=== PATIENT | female | born 1965 | race Caucasian/White ===

== ENCOUNTER → 2016-12-20 | Outpatient (CLI) | payer OTHER ==
[~2016-12-20] MED LIST: ACET500T3 PO; ALBU1AER5 INH; AMIT25TA9 PO; AMIT50TA3 PO; AMOX500C PO; CETI-6 PO; CHOL5000 PO; CLON0.1T PO; GABA800T PO; LEVO125T4 PO; MELA1TAB18 PO; METF500T PO; OMEP40CA2 PO; PARO20TA2 PO; RANI150C PO; VITA500T4 PO; ZINC50TA PO
[2016-12-20 08:20] LABS: AUTOMATED NEUTROPHIL # 4.2 TH/MM3 (1.8-7.7); BASOPHIL % 0.4 % (0.0-2.0); EOSINOPHIL # 0.2 TH/MM3 (0-0.4); EOSINOPHIL % 3.6 % (0.0-4.0); HEMATOCRIT 37.9 % (35.0-46.0); HEMO FLAGS DIFF FINAL; LYMPH % 25.2 % (9.0-44.0); LYMPHOCYTE # 1.7 TH/MM3 (1.0-4.8); MEAN CELL VOLUME 85.8 FL (80.0-100.0); MEAN CORPUSCULAR HEMOGLOBIN 29.8 PG (27.0-34.0); MEAN CORPUSCULAR HGB CONC 34.7 % (32.0-36.0); MONO % 8.5 % (0.0-8.0); NEUT % 62.3 % (16.0-70.0); PLATELET COUNT 245 TH/MM3 (150-450); RED BLOOD COUNT 4.41 MIL/MM3 (4.00-5.30); RED CELL DISTRIBUTION WIDTH 12.8 % (11.6-17.2); WHITE BLOOD COUNT 6.7 TH/MM3 (4.0-11.0)
[2016-12-20 08:48] LABS: ANION GAP 6 MEQ/L (5-15); AST (GOT) 15 U/L (15-37); BICARBONATE 31.2 MEQ/L (21.0-32.0); BLOOD UREA NITROGEN 9 MG/DL (7-18); CHLORIDE 101 MEQ/L (98-107); GLOMERULAR FILTRATION RATE 65 ML/MIN (>89); GLUCOSE,FASTING 106 MG/DL (74-99); SODIUM (NA) 138 MEQ/L (136-145)
[2016-12-20 08:59] LABS: ALKALINE PHOSPHATASE 72 U/L (45-117); ALT (GPT) 22 U/L (10-53); HDL CHOLESTEROL 71.3 MG/DL (40.0-60.0); LDL CHOLESTEROL 136 MG/DL (0-99); TOTAL BILIRUBIN ADULT 0.4 MG/DL (0.2-1.0)
[2016-12-20 16:39] LABS: HEMOGLOBIN A1a 0.9 %; HEMOGLOBIN A1b 1.7 %; HEMOGLOBIN Ao 85.2 %; HEMOGLOBIN LA1C 1.9 %; HEMOGLOBIN P3 3.5 %
== END ==
LOC: CLAB 07:57
PROVIDERS: ATTEND Family Medicine
DX: E03.9 Hypothyroidism, unspecified (principal); E11.9 Type 2 diabetes mellitus without complications; I10 Essential (primary) hypertension; G89.29 Other chronic pain; G47.30 Sleep apnea, unspecified; E66.9 Obesity, unspecified
CPT/HCPCS: 36415; 80053; 80061; 83036; 84443; 85025

== ENCOUNTER → 2017-01-01 | Outpatient (CLI) | payer OTHER ==
[~2017-01-01] MED LIST changes: -AMOX500C PO
--- NOTE | 2017-01-01 13:30 | RADRPT ---
EXAM DATE/TIME: 01/01/2017 11:58 [facility] COMPARISON: No previous studies available for comparison. INDICATIONS : Dysphagia, foods sometimes feel like they are stuck in throat, awakes gasping, feeling like her throa t has closed up FLUORO TIME: 1.7 minutes IMAGE COUNT: 17 CONTRAST: 1. Liquid E-Z Paque Barium Sulfate (60% w/v, 41% w.w) E-Z HD Barium Sulfate (98% w.w) MEDICAL HISTORY : Hiatal hernia. SURGICAL HISTORY : None. ENCOUNTER: Initial ACUITY: 3 months PAIN SCORE: 0/10 LOCATION: Bilateral esophagus FINDINGS: Air-contrast views of the hypopharynx demonstrate a normal mucosal surface without filling defect. R apid sequence images of the hypopharynx and cervical esophagus during the passage of barium demonstra te a normal swallowing function. No evidence of aspiration. Multiphasic examination of the esophagu s demonstrates no esophageal fold thickening, ulceration, or filling defect. There is a small to mode rate size reducible hiatal hernia. There is a small amount of gastroesophageal reflux. CONCLUSION: 1. Small to moderate size reducible hiatal hernia. 2. Small amount of gastroesophageal reflux. Jack Tai MD on January 01, 2017 at 13:27 Board Certified Radiologist. This report was verified electronically.
== END ==
LOC: HRAD 11:03
PROVIDERS: ATTEND Family Medicine
DX: R13.10 Dysphagia, unspecified (principal)
CPT/HCPCS: 74230

== ENCOUNTER 2017-09-14 21:26 | Emergency (ER) | payer OTHER ==
[~2017-09-14] VITALS: Ht 167.6 cm; Wt 102.7 kg
[~2017-09-14 21:26] MED LIST changes: +ACET-822 PO; -ACET500T3 PO; -ALBU1AER5 INH; +ALBU6.7H INH; -AMIT25TA9 PO; -AMIT50TA3 PO; +DULO20 PO; -PARO20TA2 PO; +PARO30TA2 PO; -ZINC50TA PO
[2017-09-14 21:34] VITALS: BP 130/72; PULSE 88; RESP 18; TEMP 97.8; O2SAT 97
[2017-09-14] MEDS ORDERED: PROPARACAINE HCL 0.5% OPHT SOLN 15 ML BTL LEFT EYE ONE (23:15)
[2017-09-14] MEDS ORDERED: TRAM50TA PO (23:45)
[2017-09-14] MEDS ORDERED: traMADol HCL 50 MG TAB PO ONE (23:45)
[2017-09-14] MEDS ORDERED: ACYCLOVIR 800 MG TAB PO ONE (23:45)
[2017-09-14] MEDS ORDERED: ACYC-101 PO (23:46)
--- NOTE | 2017-09-14 23:54 | PD ---
HPI Chief Complaint: Skin Problem Time Seen by Provider: 23:09 Travel History International Travel<30 days: No Contact w/Intl Traveler<30days: No Traveled to known affect area: No History of Present Illness HPI The patient is a 52-year-old female that complains of shingles rash around her left mid trunk for about 2-3 days. She scratched the rash and then scratched her left eye and is worried that she may have some herpes zoster in her left eye. Her left eye does itch and burn slightly. She does not have any visual acuity problems. PFSH Past Medical History Asthma: Yes Autoimmune Disease: Yes (FIBROMYALGIA, GRAVES DISEASE) Heart Rhythm Problems: No Cardiac Catheterization: No Cardiovascular Problems: Yes (HTN) High Cholesterol: No Congestive Heart Failure: No Diabetes: Yes Diminished Hearing: No Deep Vein Thrombosis: Yes (right arm) Fibromyalgia: Yes GERD: Yes Hypertension: Yes Respiratory: Yes (ASTHMA) Migraines: Yes Thyroid Disease: Yes Tetanus Vaccination: < 5 Years Influenza Vaccination: No ?: Not : 0 Para: 0 Miscarriage: 0 : 0 Past Surgical History Appendectomy: Yes Coronary Artery Bypass Graft: No Hysterectomy: Yes Other Surgery: Yes (RADIOACTIVE IODINE FOR THYROID) Social History Alcohol Use: No Tobacco Use: No Substance Use: Yes (MARIJUNA) Allergies-Medications (Allergen,Severity, Reaction): Coded Allergies: Fish Containing Products (Unverified Allergy, Severe, Anaphylaxis, 09/14/17) aspirin (Unverified Allergy, Severe, Anaphylaxis, 09/14/17) diclofenac (Unverified Allergy, Severe, Swelling, 09/14/17) etodolac (Unverified Allergy, Severe, Swelling, 09/14/17) flurbiprofen (Unverified Allergy, Severe, Swelling, 09/14/17) ibuprofen (Unverified Allergy, Severe, Swelling, 09/14/17) indomethacin (Unverified Allergy, Severe, Swelling, 09/14/17) ketoprofen (Unverified Allergy, Severe, Swelling, 09/14/17) ketorolac (Unverified Allergy, Severe, Swelling, 09/14/17) naproxen (Unverified Allergy, Severe, Swelling, 09/14/17) oxaprozin (Unverified Allergy, Severe, Swelling, 09/14/17) raspberry (Unverified Allergy, Severe, Anaphylaxis, 09/14/17) shellfish derived (Verified Allergy, Severe, Anaphylaxis, 09/14/17) Sulfa (Sulfonamide Antibiotics) (Unverified Adverse Reaction, Intermediate , Nausea/Vomiting, 09/14/17) Uncoded Allergies: SEAFOOD (Allergy, Severe, Anaphylaxis, 09/14/17) Reported Meds & Prescriptions Reported Meds & Active Scripts Active Zovirax (Acyclovir) 800 Mg Tab 800 Mg PO 5 TIMES A DAY 7 Days Tramadol (Tramadol HCl) 50 Mg Tab 50 Mg PO Q4H PRN Proventil Hfa 6.7 GM Inh (Albuterol Sulfate) 90 Mcg/Act Aer 2 Puff INH Q6H PRN Omeprazole 40 Mg Cap 40 Mg PO DAILY Levothyroxine (Levothyroxine Sodium) 125 Mcg Tab 125 Mcg PO DAILY Ranitidine (Ranitidine HCl) 150 Mg Cap 150 Mg PO BID Metformin (Metformin HCl) 500 Mg Tab 500 Mg PO DAILY With a meal Gabapentin 800 Mg Tab 800 Mg PO QID Reported Cymbalta DR (Duloxetine HCl) 20 Mg Capdr 40 Mg PO DAILY Tylenol Extra Strength (Acetaminophen) 500 Mg Tablet 2 Tab PO DIRECTED Paroxetine (Paroxetine HCl) 30 Mg Tab 30 Mg PO DAILY Eq Allergy Relief (Cetirizine HCl) 10 Mg Tab 10 Mg PO DAILY Vitamin B-12 (Cyanocobalamin) 500 Mcg Tab 500 Mcg PO DAILY Melatonin 10 Mg Tab 10 Mg PO HS PRN Vitamin D3 (Cholecalciferol) 5,000 Unit Cap 5,000 Units PO DAILY Clonidine (Clonidine HCl) 0.1 Mg Tab 0.1 Mg PO HS Review of Systems Except as stated in HPI: all other systems reviewed are Neg Physical Exam Narrative GENERAL: The patient is alert, oriented 3 in moderate apparent distress with her herpes zoster rash. Her blood pressure is 130/70. The rest of the vital signs are normal. SKIN: Focused skin assessment warm/dry. There is a classic herpes rash below the left breast and around the trunk. This rash does not cross midline. HEAD: Atraumatic. Normocephalic. EYES: Pupils equal and round. No scleral icterus. No injection or drainage. The visual acuity is 20/40 left eye and 20/15 right eye area. The for seen staining revealed no corneal uptake. The temporal portion of the left lower eyelid shows some slight erythema but no vesicles. This is where she feels the itching and burning. No discharge is present. ENT: No nasal bleeding or discharge. Mucous membranes pink and moist. NECK: Trachea midline. No JVD. CARDIOVASCULAR: Regular rate and rhythm. No murmur appreciated. RESPIRATORY: No accessory muscle use. Clear to auscultation. Breath sounds equal bilaterally. GASTROINTESTINAL: Abdomen soft, non-tender, nondistended. Hepatic and splenic margins not palpable. MUSCULOSKELETAL: No obvious deformities. No clubbing. No cyanosis. No edema. NEUROLOGICAL: Awake and alert. No obvious cranial nerve deficits. Motor grossly within normal limits. Normal speech. PSYCHIATRIC: Appropriate mood and affect; insight and judgment normal. Data Data Last Documented VS Vital Signs Date Time Temp Pulse Resp B/P (MAP) Pulse Ox O2 Delivery O2 Flow Rate FiO2 09/14/17 23:01 20 09/14/17 21:34 97.8 88 130/72 (91) 97 Orders Orders Proparacaine 0.5% Opth Soln (Alcaine 0.5 (09/14/17 23:15) Acyclovir (Zovirax) (09/14/17 23:45) Tramadol (Ultram) (09/14/17 23:45) MDM Medical Decision Making Medical Screen Exam Complete: Yes Emergency Medical Condition: Yes Medical Record Reviewed: Yes Differential Diagnosis Herpes zoster, seborrheic dermatitis, herpes zoster with eye involvement Narrative Course The patient has herpes zoster on the skin. At this time I see no corneal involvement with herpes. Forcing staining was normal. I do not see any vesicles on the left eyelid. Nevertheless, the patient will need to follow-up with an ndt inspector as soon as possible. She is given Zovirax and tramadol for the herpes zoster on the skin. Additional Instructions: Keep her fingers out of your eye, I know you already know that. Sunday he should follow-up with an ndt inspector to make sure you did not get eye involvement with herpes. The Zovirax is 5 tablets daily for 7 days. Do not drink alcohol or drive on the tramadol. If worse, you are welcome to return to the emergency department. Med/Other Pt SpecificInfo: Prescription(s) given Scripts Acyclovir (Zovirax) 800 Mg Tab 800 MG PO 5 TIMES A DAY for Mgmt Viral Infection for 7 Days, TAB 0 Refills Prov: Amado Leo MD 09/14/17 Tramadol (Tramadol) 50 Mg Tab 50 MG PO Q4H Y for PAIN, #30 TAB 0 Refills Prov: Amado Leo MD 09/14/17 Disposition: 01 DISCHARGE HOME Condition: Stable Amado Leo MD Sep 14, 2017 23:54
[2017-09-15 00:06] VITALS: BP 133/90
== END 2017-09-15 00:10 | disposition home or self-care (01) ==
LOC: PHED 21:26
DX: B02.9 Zoster without complications (principal); M79.7 Fibromyalgia; E05.00 Thyrotoxicosis with diffuse goiter without thyrotoxic crisis or storm; I10 Essential (primary) hypertension; E11.9 Type 2 diabetes mellitus without complications; J45.909 Unspecified asthma, uncomplicated; Z86.718 Personal history of other venous thrombosis and embolism; K21.9 Gastro-esophageal reflux disease without esophagitis; Z79.899 Other long term (current) drug therapy
CPT/HCPCS: 99284

== ENCOUNTER 2017-10-15 17:46 | Emergency (ER) | payer OTHER ==
[~2017-10-15] VITALS: Ht 165.1 cm; Wt 98.0 kg
[~2017-10-15 17:46] MED LIST changes: +ACYC-101 PO; +TRAM50TA PO
[2017-10-15 17:56] VITALS: BP 164/90; PULSE 98; RESP 16; TEMP 98.7; O2SAT 97
[2017-10-15] MEDS ORDERED: PRED20 PO (20:34)
[2017-10-15] MEDS ORDERED: AZIT250T3 PO (20:34)
[2017-10-15] MEDS ORDERED: ALBUAER3 INH (20:34)
--- NOTE | 2017-10-15 20:34 | PD ---
HPI Chief Complaint: Cold / Flu Symptoms Time Seen by Provider: 19:44 Travel History International Travel<30 days: No Contact w/Intl Traveler<30days: No Traveled to known affect area: No History of Present Illness HPI This is a 52-year-old female here with productive cough and wheezing 4 days. She reports the symptoms originally started out as a flulike illness with fever , body aches, nasal congestion and sore throat. The symptoms resolved and she developed this deep productive cough. History of asthma. Severity is moderate. No aggravating or relieving factors. PFSH Past Medical History Asthma: Yes Autoimmune Disease: Yes (FIBROMYALGIA, GRAVES DISEASE) Heart Rhythm Problems: No Cardiac Catheterization: No Cardiovascular Problems: Yes (HTN) High Cholesterol: No Congestive Heart Failure: No Diabetes: Yes Patient Takes Glucophage: No Diminished Hearing: No Deep Vein Thrombosis: Yes (right arm) Fibromyalgia: Yes GERD: Yes Heparin Induced Thrombocytopen: No Hypertension: Yes Respiratory: Yes (ASTHMA) Migraines: Yes Thyroid Disease: Yes Tetanus Vaccination: < 5 Years Influenza Vaccination: No ?: Not : 0 Para: 0 Miscarriage: 0 : 0 Past Surgical History Appendectomy: Yes Coronary Artery Bypass Graft: No Hysterectomy: Yes Other Surgery: Yes (RADIOACTIVE IODINE FOR THYROID) Family History Family Myocardial Infarction: Yes Social History Alcohol Use: No Tobacco Use: No Substance Use: No Allergies-Medications (Allergen,Severity, Reaction): Coded Allergies: Fish Containing Products (Unverified Allergy, Severe, Anaphylaxis, 10/15/17) aspirin (Unverified Allergy, Severe, Anaphylaxis, 10/15/17) diclofenac (Unverified Allergy, Severe, Swelling, 10/15/17) etodolac (Unverified Allergy, Severe, Swelling, 10/15/17) flurbiprofen (Unverified Allergy, Severe, Swelling, 10/15/17) ibuprofen (Unverified Allergy, Severe, Swelling, 10/15/17) indomethacin (Unverified Allergy, Severe, Swelling, 10/15/17) ketoprofen (Unverified Allergy, Severe, Swelling, 10/15/17) ketorolac (Unverified Allergy, Severe, Swelling, 10/15/17) naproxen (Unverified Allergy, Severe, Swelling, 10/15/17) oxaprozin (Unverified Allergy, Severe, Swelling, 10/15/17) raspberry (Unverified Allergy, Severe, Anaphylaxis, 10/15/17) shellfish derived (Verified Allergy, Severe, Anaphylaxis, 10/15/17) Sulfa (Sulfonamide Antibiotics) (Unverified Adverse Reaction, Intermediate , Nausea/Vomiting, 10/15/17) Uncoded Allergies: SEAFOOD (Allergy, Severe, Anaphylaxis, 09/14/17) Reported Meds & Prescriptions Reported Meds & Active Scripts Active Tramadol (Tramadol HCl) 50 Mg Tab 50 Mg PO Q4H PRN Proventil Hfa 6.7 GM Inh (Albuterol Sulfate) 90 Mcg/Act Aer 2 Puff INH Q6H PRN Omeprazole 40 Mg Cap 40 Mg PO DAILY Levothyroxine (Levothyroxine Sodium) 125 Mcg Tab 125 Mcg PO DAILY Ranitidine (Ranitidine HCl) 150 Mg Cap 150 Mg PO BID Metformin (Metformin HCl) 500 Mg Tab 500 Mg PO DAILY With a meal Gabapentin 800 Mg Tab 800 Mg PO QID Reported Cymbalta DR (Duloxetine HCl) 20 Mg Capdr 40 Mg PO DAILY Paroxetine (Paroxetine HCl) 30 Mg Tab 30 Mg PO DAILY Eq Allergy Relief (Cetirizine HCl) 10 Mg Tab 10 Mg PO DAILY Vitamin B-12 (Cyanocobalamin) 500 Mcg Tab 500 Mcg PO DAILY Vitamin D3 (Cholecalciferol) 5,000 Unit Cap 5,000 Units PO DAILY Clonidine (Clonidine HCl) 0.1 Mg Tab 0.1 Mg PO HS Review of Systems Except as stated in HPI: all other systems reviewed are Neg General / Constitutional: Positive: Fever Eyes: No: Visual changes HENT: No: Headaches Cardiovascular: No: Chest Pain or Discomfort Gastrointestinal: No: Abdominal Pain Genitourinary: No: Dysuria Musculoskeletal: No: Pain Skin: No Rash Physical Exam Narrative GENERAL: Alert and well-appearing 52-year-old female. SKIN: Warm and dry. No rash HEAD: Normocephalic. EYES: No injection or drainage. Ear/nose/throat: No TM erythema. Clear nasal discharge. Mild pharyngeal erythema without tonsillar hypertrophy or exudate. NECK: Supple. No meningismus CARDIOVASCULAR: Regular rate and rhythm RESPIRATORY: Breath sounds equal bilaterally. No accessory muscle use. Rhonchorous cough with mild expiratory wheeze GASTROINTESTINAL: Abdomen soft, non-tender, nondistended. MUSCULOSKELETAL: No cyanosis, or edema. BACK: No CVA tenderness. Data Data Last Documented VS Vital Signs Date Time Temp Pulse Resp B/P (MAP) Pulse Ox O2 Delivery O2 Flow Rate FiO2 10/15/17 17:56 98.7 98 16 164/90 (114) 97 MDM Medical Decision Making Medical Screen Exam Complete: Yes Emergency Medical Condition: Yes Differential Diagnosis Bronchitis, pneumonia, influenza Narrative Course This is a 52-year-old female here with a rhonchorous productive cough. She is nontoxic appearing. She'll be for bronchitis. Diagnosis Primary Impression: Bronchitis Referrals: Primary Care Physician Additional Instructions: Medication as directed. stay well hydrated. follow up with your doctor. Scripts Albuterol 8.5 GM Inh (Proair Hfa 8.5 GM Inh) 90 Mcg/Act Aer 2 PUFF INH Q4-6H Y for SHORTNESS OF BREATH, #1 INHALER 0 Refills 108 mcg/actuation Prov: Viviane Velásquez 10/15/17 Prednisone (Prednisone) 20 Mg Tab 40 MG PO DAILY, #10 TAB 0 Refills Take 40 mg (2 tablets) daily for 5 days Prov: Viviane Velásquez 10/15/17 Azithromycin (Azithromycin) 250 Mg Tab 250 MG PO DIRECTED for Infection, #6 TAB 0 Refills Take 2 tabs (500 mg) on day 1 then 1 tab daily x 4 days. Prov: Viviane Velásquez 10/15/17 Disposition: 01 DISCHARGE HOME Condition: Stable Viviane Velásquez Oct 15, 2017 20:34
== END 2017-10-15 20:44 | disposition home or self-care (01) ==
LOC: PHED 17:46 → PHEFT 20:44
DX: J40 Bronchitis, not specified as acute or chronic (principal); E11.9 Type 2 diabetes mellitus without complications; I10 Essential (primary) hypertension; M79.7 Fibromyalgia; E05.00 Thyrotoxicosis with diffuse goiter without thyrotoxic crisis or storm; K21.9 Gastro-esophageal reflux disease without esophagitis; Z86.718 Personal history of other venous thrombosis and embolism; Z79.84 Long term (current) use of oral hypoglycemic drugs
CPT/HCPCS: 99283

== ENCOUNTER 2018-01-05 09:31 | Emergency (ER) | payer OTHER ==
[~2018-01-05] VITALS: Ht 167.6 cm; Wt 95.0 kg
[~2018-01-05 09:31] MED LIST changes: -ACET-822 PO; -ACYC-101 PO; +ALBUAER3 INH; +AZIT250T3 PO; -MELA1TAB18 PO; +PRED20 PO
[2018-01-05 09:33] VITALS: BP 149/81; PULSE 91; RESP 16; TEMP 98; O2SAT 95
--- NOTE | 2018-01-05 09:55 | PD ---
HPI Chief Complaint: Cold / Flu Symptoms Time Seen by Provider: 09:38 Travel History International Travel<30 days: No Contact w/Intl Traveler<30days: No Traveled to known affect area: No History of Present Illness HPI 52-year-old female presents to the emergency department for evaluation of productive cough, chest pain, shortness of breath, wheezing that started on Sunday. She reports fevers up to 102 since . Patient reports history of type 2 diabetes, hypertension, DVT, asthma. She states she has been using her albuterol inhaler home without improvement. Patient also reports left- sided chest pain, worse with coughing since Sunday as well. Patient states that she feels like she has specks of blood in her sputum. She reports history of DVT in the arm after hysterectomy in 2009. No other history of blood clots. No recent surgery or travel. No leg edema. Patient states that normally if she gets sick, she has congestion, but this feels different. No headache. No abdominal pain. She reports nausea and decreased appetite. No vomiting. No exacerbating or alleviating factors. Moderate severity. PFSH Past Medical History Hx Anticoagulant Therapy: No Asthma: Yes Autoimmune Disease: Yes (FIBROMYALGIA, GRAVES DISEASE) Heart Rhythm Problems: No Cardiac Catheterization: No Cardiovascular Problems: Yes (HTN) High Cholesterol: No Congestive Heart Failure: No Diabetes: Yes (TYPE 2) Diminished Hearing: No Deep Vein Thrombosis: Yes (right arm) Fibromyalgia: Yes GERD: Yes Heparin Induced Thrombocytopen: No Hypertension: Yes Respiratory: Yes (ASTHMA) Migraines: Yes Thyroid Disease: Yes ?: Not : 0 Para: 0 Miscarriage: 0 : 0 Past Surgical History Appendectomy: Yes Coronary Artery Bypass Graft: No Hysterectomy: Yes Other Surgery: Yes (RADIOACTIVE IODINE FOR THYROID) Social History Alcohol Use: No Tobacco Use: No Substance Use: No Allergies-Medications (Allergen,Severity, Reaction): Coded Allergies: Fish Containing Products (Unverified Allergy, Severe, Anaphylaxis, 01/05/18 ) aspirin (Unverified Allergy, Severe, Anaphylaxis, 01/05/18) diclofenac (Unverified Allergy, Severe, Swelling, 01/05/18) etodolac (Unverified Allergy, Severe, Swelling, 01/05/18) flurbiprofen (Unverified Allergy, Severe, Swelling, 01/05/18) ibuprofen (Unverified Allergy, Severe, Swelling, 01/05/18) indomethacin (Unverified Allergy, Severe, Swelling, 01/05/18) ketoprofen (Unverified Allergy, Severe, Swelling, 01/05/18) ketorolac (Unverified Allergy, Severe, Swelling, 01/05/18) naproxen (Unverified Allergy, Severe, Swelling, 01/05/18) oxaprozin (Unverified Allergy, Severe, Swelling, 01/05/18) raspberry (Unverified Allergy, Severe, Anaphylaxis, 01/05/18) shellfish derived (Verified Allergy, Severe, Anaphylaxis, 01/05/18) Sulfa (Sulfonamide Antibiotics) (Unverified Adverse Reaction, Intermediate , Nausea/Vomiting, 01/05/18) Uncoded Allergies: SEAFOOD (Allergy, Severe, Anaphylaxis, 09/14/17) Reported Meds & Prescriptions Reported Meds & Active Scripts Active Proair Hfa 8.5 GM Inh (Albuterol Sulfate) 90 Mcg/Act Aer 2 Puff INH Q4-6H PRN 108 mcg/actuation Tramadol (Tramadol HCl) 50 Mg Tab 50 Mg PO Q4H PRN Proventil Hfa 6.7 GM Inh (Albuterol Sulfate) 90 Mcg/Act Aer 2 Puff INH Q6H PRN Omeprazole 40 Mg Cap 40 Mg PO DAILY Levothyroxine (Levothyroxine Sodium) 125 Mcg Tab 125 Mcg PO DAILY Ranitidine (Ranitidine HCl) 150 Mg Cap 150 Mg PO BID Metformin (Metformin HCl) 500 Mg Tab 500 Mg PO DAILY With a meal Gabapentin 800 Mg Tab 800 Mg PO QID Reported Kin DR (Duloxetine HCl) 20 Mg Capdr 40 Mg PO DAILY Paroxetine (Paroxetine HCl) 30 Mg Tab 30 Mg PO DAILY Eq Allergy Relief (Cetirizine HCl) 10 Mg Tab 10 Mg PO DAILY Vitamin B-12 (Cyanocobalamin) 500 Mcg Tab 500 Mcg PO DAILY Vitamin D3 (Cholecalciferol) 5,000 Unit Cap 5,000 Units PO DAILY Clonidine (Clonidine HCl) 0.1 Mg Tab 0.1 Mg PO HS Review of Systems Except as stated in HPI: all other systems reviewed are Neg Physical Exam Narrative GENERAL: Well-nourished, well-developed female patient, afebrile. SKIN: Focused skin assessment warm/dry. HEAD: Normocephalic. Atraumatic ENT: Mucosa pink and moist. No erythema or exudates. No uvular edema. No uvular , palatal, or tonsillar deviation. Airway patent. Nasal turbinates appear normal without nasal blood, purulent drainage or septal hematoma. Bilateral tympanic membranes clear without erythema or perforation. EYES: No scleral icterus. No injection or drainage. NECK: Supple, trachea midline. No JVD or lymphadenopathy. CARDIOVASCULAR: Regular rate and rhythm without murmurs, gallops, or rubs. Bilateral radial and pedal pulses are 2+. RESPIRATORY: Breath sounds equal bilaterally. No accessory muscle use. Lung sounds were initially clear, but diminished. However, after patiently down, expiratory wheezes are noted throughout. GASTROINTESTINAL: Abdomen soft, non-tender, nondistended. MUSCULOSKELETAL: No cyanosis, or edema. Left-sided chest pain is reproducible with palpation. BACK: Nontender without obvious deformity. No CVA tenderness. Data Data Last Documented VS Vital Signs Date Time Temp Pulse Resp B/P (MAP) Pulse Ox O2 Delivery O2 Flow Rate FiO2 01/05/18 10:10 16 95 Room Air 01/05/18 09:55 91 01/05/18 09:33 98.0 149/81 (103) Orders Orders Complete Blood Count With Diff (01/05/18 09:48) Basic Metabolic Panel (Bmp) (01/05/18 09:48) D-Dimer (01/05/18 09:48) Act Partial Throm Time (Ptt) (01/05/18 09:48) Prothrombin Time / Inr (Pt) (01/05/18:48) Magnesium (Mg) (01/05/18 09:48) Ckmb (Isoenzyme) Profile (01/05/18 09:48) Troponin I (01/05/18 09:48) Iv Access Insert/Monitor (01/05/18:48) Electrocardiogram (01/05/18:48) Ecg Monitoring (01/05/18:48) Oximetry (01/05/18 09:48) Oxygen Administration (01/05/18 09:48) Chest, Single Ap (01/05/18 09:48) Sodium Chloride 0.9% Flush (Ns Flush) (01/05/18 10:00) Methylprednisolone So Succ Inj (Solumedr (01/05/18 10:00) Albuterol-Ipratropium Neb (Duoneb Neb) (01/05/18 10:00) Ceftriaxone Inj (Rocephin Inj) (01/05/18 11:15) Labs Laboratory Tests Test 01/05/18 10:10 White Blood Count 7.6 TH/MM3 Red Blood Count 4.51 MIL/MM3 Hemoglobin 13.3 GM/DL Hematocrit 37.7 % Mean Corpuscular Volume 83.7 FL Mean Corpuscular Hemoglobin 29.5 PG Mean Corpuscular Hemoglobin Concent 35.2 % Red Cell Distribution Width 12.7 % Platelet Count 275 TH/MM3 Mean Platelet Volume 8.5 FL Neutrophils (%) (Auto) 85.4 % Lymphocytes (%) (Auto) 9.1 % Monocytes (%) (Auto) 4.7 % Eosinophils (%) (Auto) 0.3 % Basophils (%) (Auto) 0.5 % Neutrophils # (Auto) 6.5 TH/MM3 Lymphocytes # (Auto) 0.7 TH/MM3 Monocytes # (Auto) 0.4 TH/MM3 Eosinophils # (Auto) 0.0 TH/MM3 Basophils # (Auto) 0.0 TH/MM3 CBC Comment DIFF FINAL Differential Comment Prothrombin Time 10.1 SEC Prothromb Time International Ratio 1.0 RATIO Activated Partial Thromboplast Time 26.5 SEC D-Dimer Quantitative (PE/DVT) 0.41 MG/L FEU Blood Urea Nitrogen 8 MG/DL Creatinine 0.82 MG/DL Random Glucose 175 MG/DL Calcium Level 9.6 MG/DL Magnesium Level 2.3 MG/DL Sodium Level 136 MEQ/L Potassium Level 3.7 MEQ/L Chloride Level 99 MEQ/L Carbon Dioxide Level 30.7 MEQ/L Anion Gap 6 MEQ/L Estimat Glomerular Filtration Rate 73 ML/MIN Total Creatine Kinase 75 U/L Troponin I LESS THAN 0.02 NG/ML MDM Medical Decision Making Medical Screen Exam Complete: Yes Emergency Medical Condition: Yes Medical Record Reviewed: Yes Interpretation(s) Last Impressions Chest X-Ray 01/05/18 0948 Signed Impressions: Service Date/Time: Friday, January 05, 2018 09:50 - CONCLUSION: Fine reticular nodular infiltrates are noted bilaterally. Tani Ferreira MD Differential Diagnosis Bronchitis versus pneumonia versus asthma exacerbation versus ACS versus PE Narrative Course 52-year-old female presents to the emergency department for evaluation of productive cough, wheezing, shortness of breath and left-sided chest pain worse with coughing since Sunday. EKG, CBC, BMP, magnesium, CK, troponin, PTT, PT/ INR, d-dimer ordered and pending. Patient is given DuoNeb 3 and Solu-Medrol and 25 mg IV. Chest x-ray is ordered and pending. EKG shows sinus rhythm, heart rate 74, no acute ST changes. CBC shows normal WBC of 7.6, no acute abnormality. BMP shows hyperglycemia 175, no acute abnormal. Ck is 75. Troponin is less than 0.02. Magnesium is 2.3. Coags are unremarkable. D-dimer is 0.41. Chest x-ray shows fine reticular nodular infiltrates noted bilaterally. Patient is given Rocephin 1 g IV in the emergency department. She will be discharged prescription for azithromycin for pneumonia. She will also be given a refill of her albuterol inhaler as well as prednisone. She is to follow-up with her primary care physician or return here for any acute worsening of symptoms. The patient was discharged in stable condition with instructions, including return instructions and follow up instructions. Diagnosis Primary Impression: Pneumonia Qualified Codes: J18.9 - Pneumonia, unspecified organism Referrals: Primary Care Physician call for appointment Patient Instructions: Community Acquired Pneumonia (ED), General Instructions Departure Forms: Tests/Procedures, Work Release Enter return to work date: January 08, 2018 Additional Instructions: Take antibiotic as directed until gone. Start this today. Take prednisone as directed. Start this tomorrow. Use albuterol inhaler as directed as needed for shortness of breath/wheezing. Follow-up with your primary care physician early next week. Return to the emergency department for any acute worsening of symptoms Med/Other Pt SpecificInfo: Prescription(s) given Scripts Albuterol 18 GM Inh (Ventolin Hfa 18 GM Inh) 90 Mcg/Act Aer 1 PUFF INH Q4H Y for SHORTNESS OF BREATH, #1 INHALER 0 Refills Prov: Patti Blake 01/05/18 Azithromycin (Azithromycin) 250 Mg Tab 250 MG PO DIRECTED for Infection, #6 TAB 0 Refills Take 2 tabs (500 mg) on day 1 then 1 tab daily x 4 days. Prov: Patti Blake 01/05/18 Prednisone (Prednisone) 20 Mg Tab 40 MG PO DAILY, #10 TAB 0 Refills Take 40 mg (2 tablets) daily for 5 days Prov: Patti Blake 01/05/18 Disposition: 01 DISCHARGE HOME Condition: Stable Patti Blake Jan 05, 2018 09:55
[2018-01-05] MEDS ORDERED: methylPREDNISolone SOD SUCC 125 MG/2 ML VIAL IV PUSH ONE (10:00)
[2018-01-05] MEDS ORDERED: SODIUM CHLORIDE 0.9% FLUSH 10 ML FLUSH IVF PRN (10:00)
[2018-01-05] MEDS: RESP: ALBUTEROL 2.5 MG/IPRATROPIUM 0.5 MG NEB (SCH) INH (10:03)
[2018-01-05 10:10] VITALS: RESP 16; O2SAT 95
[2018-01-05 10:33] LABS: AUTOMATED NEUTROPHIL # 6.5 TH/MM3 (1.8-7.7); BASOPHIL % 0.5 % (0.0-2.0); EOSINOPHIL % 0.3 % (0.0-4.0); HEMATOCRIT 37.7 % (35.0-46.0); HEMOGLOBIN 13.3 GM/DL (11.6-15.3); LYMPH % 9.1 % (9.0-44.0); LYMPHOCYTE # 0.7 TH/MM3 (1.0-4.8); MEAN CELL VOLUME 83.7 FL (80.0-100.0); MEAN CORPUSCULAR HEMOGLOBIN 29.5 PG (27.0-34.0); MEAN CORPUSCULAR HGB CONC 35.2 % (32.0-36.0); MEAN PLATELET VOLUME 8.5 FL (7.0-11.0); MONO % 4.7 % (0.0-8.0); MONOCYTE # 0.4 TH/MM3 (0-0.9); NEUT % 85.4 % (16.0-70.0); PLATELET COUNT 275 TH/MM3 (150-450); RED BLOOD COUNT 4.51 MIL/MM3 (4.00-5.30); RED CELL DISTRIBUTION WIDTH 12.7 % (11.6-17.2); WHITE BLOOD COUNT 7.6 TH/MM3 (4.0-11.0)
[2018-01-05 10:41] LABS: CHLORIDE 99 MEQ/L (98-107); SODIUM (NA) 136 MEQ/L (136-145)
[2018-01-05 10:44] LABS: CALCIUM 9.6 MG/DL (8.5-10.1)
--- NOTE | 2018-01-05 10:44 | RADRPT ---
EXAM DATE/TIME: 01/05/2018 09:50 [facility] COMPARISON: No previous studies available for comparison. INDICATIONS : Cough. Short of breath for 5 days. MEDICAL HISTORY : Hiatal hernia. SURGICAL HISTORY : None. ENCOUNTER: Initial ACUITY: 4 - 6 days PAIN SCORE: 6/10 LOCATION: Bilateral chest FINDINGS: There is mild cardiomegaly. Mild diffuse reticular-nodular infiltrate suspected bilaterally greatest in the lung bases. There are no effusions. Osseous structures are intact. CONCLUSION: Fine reticular nodular infiltrates are noted bilaterally. Tani Ferreira MD on January 05, 2018 at 10:41 Board Certified Radiologist. This report was verified electronically.
[2018-01-05 10:45] LABS: BICARBONATE 30.7 MEQ/L (21.0-32.0); BLOOD UREA NITROGEN 8 MG/DL (7-18); GLUCOSE,RANDOM 175 MG/DL (74-106); MAGNESIUM 2.3 MG/DL (1.5-2.5)
[2018-01-05 10:47] LABS: PROTHROMBIN TIME - PATIENT 10.1 SEC (9.8-11.6)
[2018-01-05 10:48] LABS: CREATININE 0.82 MG/DL (0.50-1.00); GLOMERULAR FILTRATION RATE 73 ML/MIN (>89)
[2018-01-05 10:51] LABS: D-DIMER 0.41 MG/L FEU (0.00-0.50)
[2018-01-05 10:53] LABS: TROPONIN I LESS THAN 0.02 NG/ML (0.02-0.05)
[2018-01-05] MEDS ORDERED: AZIT250T3 PO (11:14)
[2018-01-05] MEDS ORDERED: VENTAER INH (11:14)
[2018-01-05] MEDS ORDERED: PRED20 PO (11:14)
[2018-01-05] MEDS ORDERED: cefTRIAXone INJ 1,000 MG in SODIUM CHLORIDE 0.9% INJ 100 ML IV ONE (11:15)
[2018-01-05 12:35] VITALS: BP 143/80
--- NOTE | 2018-01-05 14:17 | EKG ---
Date Performed: 01/05/2018 Time Performed: 09:57:17 PTAGE: 52 years EKG: Sinus rhythm NORMAL ECG PREVIOUS TRACING : 08/20/2014 19.20 Since the previous tracing, no significant change noted DOCTOR: Anthony Ramos Interpretating Date/Time 01/05/2018 14:16:42
== END 2018-01-05 12:38 | disposition home or self-care (01) ==
LOC: PHED 09:31
DX: J18.9 Pneumonia, unspecified organism (principal); E11.9 Type 2 diabetes mellitus without complications; I10 Essential (primary) hypertension; J45.909 Unspecified asthma, uncomplicated; M79.7 Fibromyalgia; E05.00 Thyrotoxicosis with diffuse goiter without thyrotoxic crisis or storm; K21.9 Gastro-esophageal reflux disease without esophagitis; E07.9 Disorder of thyroid, unspecified; Z86.718 Personal history of other venous thrombosis and embolism
CPT/HCPCS: 71045; 80048; 82550; 83735; 84484; 85025; 85379; 85610; 85730; 93005; 94640; 94664; 96365; 96376; 99285; J0696; J2930

== ENCOUNTER 2018-02-01 09:38 | Emergency (ER) | payer OTHER ==
[~2018-02-01] VITALS: Ht 167.6 cm; Wt 96.0 kg
[~2018-02-01 09:38] MED LIST changes: +VENTAER INH
[2018-02-01 09:40] VITALS: BP 155/70; PULSE 97; RESP 18; TEMP 98.3; O2SAT 100
[2018-02-01] MEDS ORDERED: AMOX500C PO (09:51)
[2018-02-01] MEDS ORDERED: CLINDAMYCIN PHOS 600 MG/4 ML VIAL IM ONE (10:00)
[2018-02-01] MEDS ORDERED: CLIN300C5 PO (10:03)
[2018-02-01] MEDS ORDERED: NORC5TAB PO (10:03)
--- NOTE | 2018-02-01 10:04 | PD ---
HPI Chief Complaint: Oral / Dental Pain or Problem Time Seen by Provider: 09:44 Travel History International Travel<30 days: No Contact w/Intl Traveler<30days: No Traveled to known affect area: No History of Present Illness HPI 52 year old female presents to the emergency department for evaluation of a dental abscess for 1 week. She saw her primary care provider 4 days ago and was started on Amoxicillin. She is on her fourth day of taking the Amoxicillin. Patient states the Amoxicillin has slightly helped the abscess, but it is not significantly improving. Patient reports pain 6/10 to the lower gum with radiation to the right ear. No fevers or chills. Mild severity. PFSH Past Medical History Hx Anticoagulant Therapy: No Asthma: Yes Autoimmune Disease: Yes (FIBROMYALGIA, GRAVES DISEASE) Heart Rhythm Problems: No Cardiac Catheterization: No Cardiovascular Problems: Yes (HTN) High Cholesterol: No Congestive Heart Failure: No Diabetes: Yes (TYPE 2) Patient Takes Glucophage: Yes (02/01/18 0700) Diminished Hearing: No Deep Vein Thrombosis: Yes (right arm) Fibromyalgia: Yes GERD: Yes Heparin Induced Thrombocytopen: No Hypertension: Yes Respiratory: Yes (ASTHMA) Migraines: Yes Thyroid Disease: Yes Tetanus Vaccination: < 5 Years Influenza Vaccination: No ?: Not : 0 Para: 0 Miscarriage: 0 : 0 Past Surgical History Appendectomy: Yes Coronary Artery Bypass Graft: No Hysterectomy: Yes Other Surgery: Yes (RADIOACTIVE IODINE FOR THYROID) Family History Family Myocardial Infarction: Yes Social History Alcohol Use: No Tobacco Use: No Substance Use: Yes (coccassional marijuana ) Allergies-Medications (Allergen,Severity, Reaction): Coded Allergies: Fish Containing Products (Unverified Allergy, Severe, Anaphylaxis, 02/01/18 ) aspirin (Unverified Allergy, Severe, Anaphylaxis, 02/01/18) diclofenac (Unverified Allergy, Severe, Swelling, 02/01/18) etodolac (Unverified Allergy, Severe, Swelling, 02/01/18) flurbiprofen (Unverified Allergy, Severe, Swelling, 02/01/18) ibuprofen (Unverified Allergy, Severe, Swelling, 02/01/18) indomethacin (Unverified Allergy, Severe, Swelling, 02/01/18) ketoprofen (Unverified Allergy, Severe, Swelling, 02/01/18) ketorolac (Unverified Allergy, Severe, Swelling, 02/01/18) naproxen (Unverified Allergy, Severe, Swelling, 02/01/18) oxaprozin (Unverified Allergy, Severe, Swelling, 02/01/18) raspberry (Unverified Allergy, Severe, Anaphylaxis, 02/01/18) shellfish derived (Verified Allergy, Severe, Anaphylaxis, 02/01/18) Sulfa (Sulfonamide Antibiotics) (Unverified Adverse Reaction, Intermediate , Nausea/Vomiting, 02/01/18) Uncoded Allergies: SEAFOOD (Allergy, Severe, Anaphylaxis, 09/14/17) Reported Meds & Prescriptions Reported Meds & Active Scripts Active Proair Hfa 8.5 GM Inh (Albuterol Sulfate) 90 Mcg/Act Aer 2 Puff INH Q4-6H PRN 108 mcg/actuation Tramadol (Tramadol HCl) 50 Mg Tab 50 Mg PO Q4H PRN Proventil Hfa 6.7 GM Inh (Albuterol Sulfate) 90 Mcg/Act Aer 2 Puff INH Q6H PRN Omeprazole 40 Mg Cap 40 Mg PO DAILY Levothyroxine (Levothyroxine Sodium) 125 Mcg Tab 125 Mcg PO DAILY Ranitidine (Ranitidine HCl) 150 Mg Cap 150 Mg PO BID Metformin (Metformin HCl) 500 Mg Tab 500 Mg PO DAILY With a meal Gabapentin 800 Mg Tab 800 Mg PO QID Reported Amoxicillin 500 Mg Cap 500 Mg PO TID Cymbalta DR (Duloxetine HCl) 20 Mg Capdr 40 Mg PO DAILY Paroxetine (Paroxetine HCl) 30 Mg Tab 30 Mg PO DAILY Eq Allergy Relief (Cetirizine HCl) 10 Mg Tab 10 Mg PO DAILY Vitamin B-12 (Cyanocobalamin) 500 Mcg Tab 500 Mcg PO DAILY Vitamin D3 (Cholecalciferol) 5,000 Unit Cap 5,000 Units PO DAILY Clonidine (Clonidine HCl) 0.1 Mg Tab 0.1 Mg PO HS Review of Systems Except as stated in HPI: all other systems reviewed are Neg Physical Exam Narrative GENERAL: Well-nourished, well-developed female patient, afebrile. SKIN: Focused skin assessment warm/dry. HEAD: Normocephalic. Mild right lower facial swelling. This does not extend past the mandibular edge. EYES: No scleral icterus. No injection or drainage. ENT: Mucosa pink and moist. No erythema or exudates. No uvular edema. No uvular , palatal, or tonsillar deviation. Airway patent. Nasal turbinates appear normal without nasal blood, purulent drainage or septal hematoma. Bilateral tympanic membranes clear without erythema or perforation. Patient has gingival induration below tooth #27 and 28. No Zbigniew's angina. NECK: Supple, trachea midline. No JVD or lymphadenopathy. CARDIOVASCULAR: Regular rate and rhythm without murmurs, gallops, or rubs. RESPIRATORY: Breath sounds equal bilaterally. No accessory muscle use. Lung sounds are clear to auscultation. GASTROINTESTINAL: Abdomen soft, non-tender, nondistended. MUSCULOSKELETAL: No cyanosis, or edema. BACK: Nontender without obvious deformity. No CVA tenderness. Data Data Last Documented VS Vital Signs Date Time Temp Pulse Resp B/P (MAP) Pulse Ox O2 Delivery O2 Flow Rate FiO2 02/01/18 09:40 98.3 97 18 155/70 (98) 100 Orders Orders Clindamycin Inj (Cleocin Inj) (02/01/18 10:00) Wound Culture And Gram Stain (02/01/18 09:57) MDM Medical Decision Making Medical Screen Exam Complete: Yes Emergency Medical Condition: Yes Medical Record Reviewed: Yes Differential Diagnosis Dental abscess versus dental caries versus gingivitis versus Zbigniew's angina Narrative Course 52-year-old female presents to the emergency department for evaluation of dental abscess. She has been on amoxicillin with minimal improvement. Patient is requesting incision and drainage if possible. Discussed that I will attempt this and she agrees. Minimal drainage is obtained and culture is sent. Patient is given clindamycin 600 mg IM and will be discharged prescription for clindamycin. She is driving today and allergic to all anti-inflammatories. I will give her a short-term prescription for [place] for home. She verbalizes agreement. She is to follow-up with a dentist. She is return here for any acute worsening of symptoms. The patient was discharged in stable condition with instructions, including return instructions and follow up instructions. Procedures Procedure Narrative INCISION AND DRAINAGE OF ABSCESS: The area was prepped and was sterilely draped. Topical Hurricaine spray was used to anesthetize the area. The area was properly anesthetized. A number 11 scalpel was used to make a 0.5 -cm incision across the area of the abscess. Cultures were obtained. The abscess was drained an irrigated with normal saline. Sterile dressing applied. Referrals: Dentist call for appointment Patient Instructions: Dental Abscess (ED), General Instructions Additional Instructions: Take clindamycin as directed until gone. Take [place] as directed as needed for pain. Caution this can make you drowsy so do not drive after taking. Follow-up with a dentist. Return to the emergency department for any acute worsening of symptoms. Med/Other Pt SpecificInfo: Prescription(s) given Scripts Clindamycin (Clindamycin) 300 Mg Cap 300 MG PO Q6H for Infection for 10 Days, #40 CAP 0 Refills Prov: Patti Blake 02/01/18 Hydrocodone-Acetaminophen ([place]) 5 Mg-325 Mg Tab 1 TAB PO Q6H Y for PAIN, #6 TAB 0 Refills Prov: Patti Blake 02/01/18 Disposition: 01 DISCHARGE HOME Condition: Stable Patti Blake February 01, 2018 10:04
== END 2018-02-01 10:33 | disposition home or self-care (01) ==
LOC: PHEFT 09:38
DX: K04.7 Periapical abscess without sinus (principal); J45.909 Unspecified asthma, uncomplicated; E05.00 Thyrotoxicosis with diffuse goiter without thyrotoxic crisis or storm; I10 Essential (primary) hypertension; E11.9 Type 2 diabetes mellitus without complications; K21.9 Gastro-esophageal reflux disease without esophagitis; M79.7 Fibromyalgia; F12.90 Cannabis use, unspecified, uncomplicated; Z86.718 Personal history of other venous thrombosis and embolism
CPT/HCPCS: 10060; 87070; 96372